=== PATIENT | male | born 1955 | race Caucasian/White ===

== ENCOUNTER 2018-09-06 10:33 | Inpatient (IN) | payer MEDICARE ==
[~2018-09-06] VITALS: Ht 182.9 cm; Wt 96.3 kg
[2018-09-06] MEDS ORDERED: CEFTRIAXONE 1 G in IV DEXTROSE 5% 50 ML IV ONE (12:00)
[2018-09-06] MEDS ORDERED: IV NORMAL SALINE 1000 ML BAG IV ONE (12:00)
[2018-09-06] MEDS ORDERED: VANCOMYCIN IV 1,000 MG in IV DEXTROSE 5% 250 ML IV ONE (12:00)
[2018-09-06] MEDS ORDERED: ONDANSETRON 4 MG/2 ML VIAL IV ONE (12:00)
[2018-09-06] MEDS ORDERED: MORPHINE SULFATE 2 MG/1 ML DISP.SYRIN IV ONE (12:00)
[2018-09-06] MEDS ORDERED: NEOMY/BACITRA/POLYMYXIN B OINT UD PACKET TP ONE ×2 (12:00→12:16)
[2018-09-06 12:08] LABS: BASOPHILS # (AUTO) 0.1 K/uL (0.0-8.0); BASOPHILS % (AUTO) 0.3 % (0.0-2.0); HEMATOCRIT 47.6 % (36.7-47.1); HEMOGLOBIN 16.5 g/dL (12.5-16.3); LYMPHOCYTES # (AUTO) 0.7 K/uL (20.0-40.0); MEAN CORPUSCULAR HEMOGLOBIN 30.9 uug (23.8-33.4); MEAN CORPUSCULAR HGB CONC 35 g/dL (32.5-36.3); MEAN CORPUSCULAR VOLUME 89.1 fL (73.0-96.2); MONOCYTES # (AUTO) 1.1 K/uL (2.0-10.0); MONOCYTES % (AUTO) 5.7 % (0.0-11.0); NEUTROPHILS # (AUTO) 16.8 K/uL (1.8-8.9); PLATELET COUNT (AUTO) 155 K/uL (152-348); RED BLOOD CELL COUNT(AUTO) 5.35 MIL/uL (4.06-5.63); WHITE BLOOD COUNT (AUTO) 18.6 K/uL (3.6-10.2)
[2018-09-06] MEDS ORDERED: MORPHINE SULFATE 4 MG/1 ML DISP.SYRIN ONE (12:15)
[2018-09-06] MEDS ORDERED: ONDANSETRON 4 MG/2 ML VIAL ONE (12:16)
[2018-09-06] MEDS ORDERED: CEFTRIAXONE 1 G VIAL ONE (12:16)
[2018-09-06 12:17] LABS: CREATININE 3.7 mg/dL (0.6-1.3); POTASSIUM 4.9 mmol/L (3.5-5.1)
[2018-09-06] MEDS ORDERED: VANCOMYCIN IV 200 ML ONE (12:17)
[2018-09-06 12:28] LABS: BILIRUBIN,DIRECT 0.3 mg/dL (0.0-0.2); BILIRUBIN,TOTAL 1.1 mg/dL (0.2-1.0)
[2018-09-06 13:22] LABS: ETHANOL < 3 MG/DL (0-0)
[2018-09-06 14:48] VITALS: BP 115/67
[2018-09-06] MEDS ORDERED: Z GUARD REMEDY PASTE 57 GM TUBE TOP PRN (15:30)
[2018-09-06] MEDS ORDERED: MAGNESIUM HYDROXIDE 30 ML LIQUID UDC PO PRN (15:30)
[2018-09-06] MEDS ORDERED: ONDANSETRON 4 MG/2 ML VIAL IV PRN (15:30)
[2018-09-06] MEDS: IV NS 1000 ML 1,000 ML IV PRN (16:54)
[2018-09-06 20:00] VITALS: BP 121/77
[2018-09-06] MEDS: HYDROCODONE/APAP 5-325MG TABLET PO PRN (21:08)
[2018-09-07] MEDS: IV NS 1000 ML 1,000 ML IV PRN ×2 (05:33→17:55)
[2018-09-07 06:05] VITALS: BP 116/69
[2018-09-07 07:01] LABS: BASOPHILS % (AUTO) 0.3 % (0.0-2.0); EOSINOPHILS % (AUTO) 0.1 % (0.0-7.0); HEMATOCRIT 40.6 % (36.7-47.1); LYMPHOCYTES # (AUTO) 0.7 K/uL (20.0-40.0); MEAN CORPUSCULAR HEMOGLOBIN 30.9 uug (23.8-33.4); MEAN CORPUSCULAR HGB CONC 35 g/dL (32.5-36.3); MEAN CORPUSCULAR VOLUME 89.5 fL (73.0-96.2); MONOCYTES # (AUTO) 0.7 K/uL (2.0-10.0); MONOCYTES % (AUTO) 6.3 % (0.0-11.0); NEUTROPHILS % (AUTO) 87.3 % (38.5-71.5); PLATELET COUNT (AUTO) 135 K/uL (152-348); RED BLOOD CELL COUNT(AUTO) 4.53 MIL/uL (4.06-5.63); WHITE BLOOD COUNT (AUTO) 11.5 K/uL (3.6-10.2)
[2018-09-07 07:07] LABS: BILIRUBIN,TOTAL 0.5 mg/dL (0.2-1.0); CREATININE 5.4 mg/dL (0.6-1.3); MAGNESIUM 2.3 mg/dL (1.8-2.4); PHOSPHOROUS 5.6 mg/dL (2.5-4.9); POTASSIUM 4.4 mmol/L (3.5-5.1); TOTAL PROTEIN, SERUM 6.5 g/dL (6.4-8.2)
[2018-09-07 07:11] LABS: THYROID STIMULATING HORMONE 2.3 mIU/mL (0.358-3.740); VANCOMYCIN,RANDOM 8.8 ug/mL (18.0-26.0)
[2018-09-07 08:07] LABS: HEPATITIS B SURFACE AG Negative (Negative)
[2018-09-07] MEDS ORDERED: VANCOMYCIN IV 1,500 MG in IV DEXTROSE 5% 500 ML IV ONE (10:00)
[2018-09-07] MEDS: HYDROCODONE/APAP 5-325MG TABLET PO PRN ×2 (11:17→16:58)
[2018-09-07 12:00] VITALS: BP 131/78
[2018-09-07] MEDS: CEFTRIAXONE 1 G in IV DEXTROSE 5% 50 ML IV SCH (13:10)
[2018-09-07 16:00] VITALS: BP 112/69
[2018-09-07 18:01] LABS: *AMPHETAMINE, URINE NEGATIVE (NEGATIVE); *BARBITURATE, URINE NEGATIVE (NEGATIVE); *CANNABINOID, URINE NEGATIVE (NEGATIVE); *COCCAINE, URINE NEGATIVE (NEGATIVE); *CREATININE,URINE 181.5 mg/dL (30-125); *OPIATE, URINE POSITIVE (NEGATIVE); *PHENCYCLIDINE SCREEN,URINE NEGATIVE (NEGATIVE); *URINE TOTAL PROTEIN RANDOM 377.7 mg/dL (<150/24HR)
[2018-09-07 18:42] LABS: *BILIRUBIN,URIN NEGATIVE (NEGATIVE); *BLOOD, URINE 3+ (NEGATIVE); *CLARITY,URINE CLOUDY (CLEAR); *COLOR,URINE Brown (YELLOW); *KETONES,URINE NEGATIVE (NEGATIVE); *UROBILINOGEN,URINE 0.2 E.U./dl (NORMAL); LEUKOCYTE ESTERASE ,URINE NEGATIVE (NEGATIVE); NITRITE, URINE NEGATIVE (NEGATIVE); PH,URINE 5.5 (5.0-8.0); UGLUCOSE NEGATIVE (NEGATIVE)
[2018-09-07 19:49] LABS: BACTERIA,URINE FEW /HPF (NONE SEEN); RBC,URINE 20-50 /HPF (0-3); SQUAMOUS EPITHELIAL CELL,UR NONE SEEN /HPF (NONE SEEN)
[2018-09-07 19:50] LABS: COARSE GRANULAR CASTS,URINE MODERATE /LPF
[2018-09-07 19:57] VITALS: BP 113/65
[2018-09-07] MEDS: CULTURELLE CAPSULE PO SCH (20:22)
[2018-09-08] MEDS: ZOLPIDEM 5 MG TABLET PO PRN ×2 (02:36→20:20)
[2018-09-08] MEDS: IV NS 1000 ML 1,000 ML IV PRN ×3 (02:39→20:23)
[2018-09-08 04:50] VITALS: BP 123/73
[2018-09-08] MEDS: ACETAMINOPHEN 325 MG TABLET PO PRN (06:03)
[2018-09-08 07:18] LABS: BASOPHILS % (AUTO) 0.4 % (0.0-2.0); EOSINOPHILS # (AUTO) 0.1 K/uL (0.0-0.7); EOSINOPHILS % (AUTO) 1.3 % (0.0-7.0); HEMOGLOBIN 12.6 g/dL (12.5-16.3); LYMPHOCYTES # (AUTO) 0.8 K/uL (20.0-40.0); LYMPHOCYTES % (AUTO) 11.7 % (20.5-51.5); MEAN CORPUSCULAR HEMOGLOBIN 30.6 uug (23.8-33.4); MEAN CORPUSCULAR HGB CONC 35 g/dL (32.5-36.3); MEAN CORPUSCULAR VOLUME 87.5 fL (73.0-96.2); MONOCYTES # (AUTO) 0.6 K/uL (2.0-10.0); MONOCYTES % (AUTO) 9.3 % (0.0-11.0); NEUTROPHILS # (AUTO) 5.3 K/uL (1.8-8.9); NEUTROPHILS % (AUTO) 77.3 % (38.5-71.5); PLATELET COUNT (AUTO) 126 K/uL (152-348); RED BLOOD CELL COUNT(AUTO) 4.11 MIL/uL (4.06-5.63); WHITE BLOOD COUNT (AUTO) 6.8 K/uL (3.6-10.2)
[2018-09-08 07:43] LABS: ALANINE AMINOTRANSFERASE 219 U/L (16-63); ALKALINE PHOSPHATASE 39 U/L (50-136); ASPARTATE AMINOTRANSFERASE 524 U/L (15-37); BILIRUBIN,DIRECT 0.1 mg/dL (0.0-0.2); BILIRUBIN,TOTAL 0.4 mg/dL (0.2-1.0); CARBON DIOXIDE 21 mmol/L (21-32); CHLORIDE 105 mmol/L (98-107); CREATININE 7.1 mg/dL (0.6-1.3); GLUCOSE 97 mg/dL (74-106); MAGNESIUM 2.2 mg/dL (1.8-2.4); PHOSPHOROUS 5.3 mg/dL (2.5-4.9); POTASSIUM 3.7 mmol/L (3.5-5.1); TOTAL PROTEIN, SERUM 5.6 g/dL (6.4-8.2)
[2018-09-08 08:02] LABS: UREA NITROGEN, BLOOD 85 mg/dL (7-18)
[2018-09-08 08:06] LABS: HEPATITIS B SURFACE AB Non Reactive (.)
[2018-09-08] MEDS: GUAIFENESIN/DEXTROMETHORPHAN 5 ML UDC PO PRN ×3 (08:13→18:37)
[2018-09-08] MEDS: CULTURELLE CAPSULE PO SCH ×2 (08:13→20:18)
[2018-09-08 08:29] LABS: CREATINE KINASE, TOTAL > 14000 U/L (39-308)
[2018-09-08 10:07] LABS: *SJOGREN'S ANTI-SS-A <0.2 AI (0.0-0.9); *SJOGREN'S ANTI-SS-B <0.2 AI (0.0-0.9); *SMITH ANTIBODIES <0.2 AI (0.0-0.9); ANTI-DNA(DS) AB, QN <1 IU/mL (0-9)
[2018-09-08] MEDS: CEFTRIAXONE 1 G in IV DEXTROSE 5% 50 ML IV SCH (11:29)
[2018-09-08] MEDS: HYDROCODONE/APAP 5-325MG TABLET PO PRN ×2 (11:45→20:19)
[2018-09-08 12:00] VITALS: BP 110/60
[2018-09-08 16:02] VITALS: BP 122/71
[2018-09-08 19:00] VITALS: BP 126/76
[2018-09-09 04:00] VITALS: BP 138/76
[2018-09-09] MEDS: IV NS 1000 ML 1,000 ML IV PRN ×2 (04:58→16:00)
[2018-09-09 05:06] LABS: COMPLEMENT, C3 SERUM 133 mg/dL (82-167); COMPLEMENT, C4 SERUM 36 mg/dL (14-44)
[2018-09-09 06:31] LABS: BASOPHILS % (AUTO) 0.5 % (0.0-2.0); EOSINOPHILS # (AUTO) 0.1 K/uL (0.0-0.7); EOSINOPHILS % (AUTO) 1.5 % (0.0-7.0); HEMATOCRIT 35.3 % (36.7-47.1); HEMOGLOBIN 12.4 g/dL (12.5-16.3); LYMPHOCYTES # (AUTO) 0.8 K/uL (20.0-40.0); MEAN CORPUSCULAR HEMOGLOBIN 30.9 uug (23.8-33.4); MEAN CORPUSCULAR HGB CONC 35 g/dL (32.5-36.3); MEAN CORPUSCULAR VOLUME 87.5 fL (73.0-96.2); MONOCYTES # (AUTO) 0.5 K/uL (2.0-10.0); MONOCYTES % (AUTO) 7.7 % (0.0-11.0); NEUTROPHILS # (AUTO) 5.4 K/uL (1.8-8.9); NEUTROPHILS % (AUTO) 79.3 % (38.5-71.5); PLATELET COUNT (AUTO) 142 K/uL (152-348); RED BLOOD CELL COUNT(AUTO) 4.03 MIL/uL (4.06-5.63); WHITE BLOOD COUNT (AUTO) 6.9 K/uL (3.6-10.2)
[2018-09-09 06:54] LABS: ALANINE AMINOTRANSFERASE 230 U/L (16-63); ALKALINE PHOSPHATASE 43 U/L (50-136); ASPARTATE AMINOTRANSFERASE 461 U/L (15-37); BILIRUBIN,TOTAL 0.4 mg/dL (0.2-1.0); CARBON DIOXIDE 20 mmol/L (21-32); CHLORIDE 108 mmol/L (98-107); CREATININE 7.4 mg/dL (0.6-1.3); GLUCOSE 121 mg/dL (74-106); MAGNESIUM 2.3 mg/dL (1.8-2.4); PHOSPHOROUS 5.2 mg/dL (2.5-4.9); TOTAL PROTEIN, SERUM 5.9 g/dL (6.4-8.2); VANCOMYCIN,RANDOM 18.7 ug/mL (18.0-26.0)
[2018-09-09 06:56] LABS: UREA NITROGEN, BLOOD 83 mg/dL (7-18)
[2018-09-09 07:27] LABS: CREATINE KINASE, TOTAL > 14000 U/L (39-308)
[2018-09-09] MEDS: CULTURELLE CAPSULE PO SCH ×2 (08:43→20:46)
[2018-09-09] MEDS: HYDROCODONE/APAP 5-325MG TABLET PO PRN ×3 (08:44→20:47)
[2018-09-09] MEDS: GUAIFENESIN/DEXTROMETHORPHAN 5 ML UDC PO PRN ×2 (08:44→18:31)
[2018-09-09 09:07] LABS: HEPATITIS Be ANTIGEN Negative (Negative)
[2018-09-09] MEDS ORDERED: VANCOMYCIN IV 1,500 MG in IV DEXTROSE 5% 500 ML IV ONE (10:00)
[2018-09-09 11:04] VITALS: BP 147/88
[2018-09-09] MEDS: CEFTRIAXONE 1 G in IV DEXTROSE 5% 50 ML IV SCH (12:23)
[2018-09-09 19:00] VITALS: BP 156/94
[2018-09-09] MEDS: ZOLPIDEM 5 MG TABLET PO PRN (20:46)
[2018-09-10] MEDS: IV NS 1000 ML 1,000 ML IV PRN ×3 (00:09→17:21)
[2018-09-10 04:00] VITALS: BP 154/91
[2018-09-10 07:41] LABS: BASOPHILS % (AUTO) 0.5 % (0.0-2.0); EOSINOPHILS # (AUTO) 0.1 K/uL (0.0-0.7); HEMOGLOBIN 12.3 g/dL (12.5-16.3); LYMPHOCYTES # (AUTO) 0.9 K/uL (20.0-40.0); LYMPHOCYTES % (AUTO) 12.5 % (20.5-51.5); MEAN CORPUSCULAR HEMOGLOBIN 30.9 uug (23.8-33.4); MEAN CORPUSCULAR HGB CONC 35 g/dL (32.5-36.3); MEAN CORPUSCULAR VOLUME 87.9 fL (73.0-96.2); MONOCYTES # (AUTO) 0.6 K/uL (2.0-10.0); MONOCYTES % (AUTO) 8.1 % (0.0-11.0); NEUTROPHILS # (AUTO) 5.5 K/uL (1.8-8.9); NEUTROPHILS % (AUTO) 76.9 % (38.5-71.5); PLATELET COUNT (AUTO) 180 K/uL (152-348); RED BLOOD CELL COUNT(AUTO) 3.98 MIL/uL (4.06-5.63); WHITE BLOOD COUNT (AUTO) 7.2 K/uL (3.6-10.2)
[2018-09-10 08:04] LABS: CARBON DIOXIDE 23 mmol/L (21-32); CHLORIDE 109 mmol/L (98-107); CREATININE 6.6 mg/dL (0.6-1.3); GLUCOSE 94 mg/dL (74-106); POTASSIUM 4.1 mmol/L (3.5-5.1); UREA NITROGEN, BLOOD 74 mg/dL (7-18)
[2018-09-10] MEDS: CULTURELLE CAPSULE PO SCH ×2 (08:12→20:14)
[2018-09-10 08:22] LABS: CREATINE KINASE, TOTAL > 14000 U/L (39-308)
[2018-09-10] MEDS: GUAIFENESIN/DEXTROMETHORPHAN 5 ML UDC PO PRN (08:39)
[2018-09-10] MEDS: HYDROCODONE/APAP 5-325MG TABLET PO PRN ×3 (08:39→20:14)
[2018-09-10 11:02] VITALS: BP 166/87
[2018-09-10] MEDS: CEFTRIAXONE 1 G in IV DEXTROSE 5% 50 ML IV SCH (11:05)
[2018-09-10 15:03] VITALS: BP 147/93
[2018-09-10 20:00] VITALS: BP 164/96
[2018-09-10] MEDS: ZOLPIDEM 5 MG TABLET PO PRN (20:14)
[2018-09-10] MEDS ORDERED: CLONIDINE HCL 0.1 MG TABLET PO PRN (21:45)
[2018-09-10 23:03] VITALS: BP 131/77
[2018-09-11] MEDS: IV NS 1000 ML 1,000 ML IV PRN ×3 (01:48→18:28)
[2018-09-11 05:21] VITALS: BP 153/82
[2018-09-11] MEDS: HYDROCODONE/APAP 5-325MG TABLET PO PRN ×3 (05:57→21:12)
[2018-09-11 06:03] LABS: BASOPHILS % (AUTO) 0.7 % (0.0-2.0); EOSINOPHILS # (AUTO) 0.2 K/uL (0.0-0.7); EOSINOPHILS % (AUTO) 3.3 % (0.0-7.0); HEMATOCRIT 36.1 % (36.7-47.1); HEMOGLOBIN 12.5 g/dL (12.5-16.3); LYMPHOCYTES # (AUTO) 0.9 K/uL (20.0-40.0); MEAN CORPUSCULAR HEMOGLOBIN 30.3 uug (23.8-33.4); MEAN CORPUSCULAR HGB CONC 35 g/dL (32.5-36.3); MEAN CORPUSCULAR VOLUME 87.6 fL (73.0-96.2); MONOCYTES # (AUTO) 0.5 K/uL (2.0-10.0); MONOCYTES % (AUTO) 7.5 % (0.0-11.0); NEUTROPHILS # (AUTO) 5.3 K/uL (1.8-8.9); NEUTROPHILS % (AUTO) 75.5 % (38.5-71.5); PLATELET COUNT (AUTO) 209 K/uL (152-348); RED BLOOD CELL COUNT(AUTO) 4.13 MIL/uL (4.06-5.63)
[2018-09-11 06:29] LABS: CREATININE 5.5 mg/dL (0.6-1.3); POTASSIUM 3.7 mmol/L (3.5-5.1); VANCOMYCIN,RANDOM 21.9 ug/mL (18.0-26.0)
[2018-09-11] MEDS: CULTURELLE CAPSULE PO SCH ×2 (09:11→21:12)
[2018-09-11] MEDS: CEFTRIAXONE 1 G in IV DEXTROSE 5% 50 ML IV SCH (11:12)
[2018-09-11 11:30] VITALS: BP 170/87
[2018-09-11 15:03] VITALS: BP 167/78
[2018-09-11 19:56] VITALS: BP_SYST 150; BP_SYST 166; BP_DIAS 90
[2018-09-11] MEDS: ZOLPIDEM 5 MG TABLET PO PRN (21:13)
[2018-09-12] MEDS: IV NS 1000 ML 1,000 ML IV PRN ×2 (02:40→13:43)
[2018-09-12] MEDS: HYDROCODONE/APAP 5-325MG TABLET PO PRN ×3 (05:01→13:19)
[2018-09-12 05:26] VITALS: BP 131/66
[2018-09-12 06:01] LABS: BASOPHILS # (AUTO) 0.1 K/uL (0.0-8.0); BASOPHILS % (AUTO) 0.8 % (0.0-2.0); EOSINOPHILS # (AUTO) 0.3 K/uL (0.0-0.7); EOSINOPHILS % (AUTO) 3.6 % (0.0-7.0); HEMATOCRIT 35.1 % (36.7-47.1); HEMOGLOBIN 12.3 g/dL (12.5-16.3); LYMPHOCYTES # (AUTO) 1.1 K/uL (20.0-40.0); LYMPHOCYTES % (AUTO) 13.8 % (20.5-51.5); MEAN CORPUSCULAR HEMOGLOBIN 30.8 uug (23.8-33.4); MEAN CORPUSCULAR HGB CONC 35 g/dL (32.5-36.3); MEAN CORPUSCULAR VOLUME 88.3 fL (73.0-96.2); MONOCYTES # (AUTO) 0.7 K/uL (2.0-10.0); MONOCYTES % (AUTO) 9.7 % (0.0-11.0); NEUTROPHILS # (AUTO) 5.6 K/uL (1.8-8.9); NEUTROPHILS % (AUTO) 72.1 % (38.5-71.5); PLATELET COUNT (AUTO) 240 K/uL (152-348); RED BLOOD CELL COUNT(AUTO) 3.98 MIL/uL (4.06-5.63); WHITE BLOOD COUNT (AUTO) 7.7 K/uL (3.6-10.2)
[2018-09-12 06:31] LABS: CREATININE 4.3 mg/dL (0.6-1.3); POTASSIUM 3.6 mmol/L (3.5-5.1); VANCOMYCIN,RANDOM 15.5 ug/mL (18.0-26.0)
[2018-09-12] MEDS: CULTURELLE CAPSULE PO SCH (08:35)
[2018-09-12] MEDS ORDERED: VANCOMYCIN IV 1,500 MG in IV DEXTROSE 5% 500 ML IV ONE (09:00)
[2018-09-12] MEDS ORDERED: CEPH500C2 PO (09:37)
[2018-09-12] MEDS ORDERED: SULF1TAB48 PO (09:37)
[2018-09-12 11:08] VITALS: BP 144/74
[2018-09-12 11:25] VITALS: BP 142/73
[2018-09-12] MEDS: ACETAMINOPHEN 325 MG TABLET PO PRN (11:28)
[2018-09-12] MEDS: CEFTRIAXONE 1 G in IV DEXTROSE 5% 50 ML IV SCH (12:24)
[2018-09-12 15:42] VITALS: BP 135/74
== END 2018-09-12 18:00 | disposition home or self-care (01) | DRG 682 ==
LOC: ER 10:33 → MED 14:24 → EDBD 14:24
PROVIDERS: ADMIT Internal Medicine; ATTEND Nurse Practitioner Acute Care
DX: N17.0 Acute kidney failure with tubular necrosis (principal); E43 Unspecified severe protein-calorie malnutrition; M62.82 Rhabdomyolysis; L03.116 Cellulitis of left lower limb; E86.0 Dehydration; Z68.28 Body mass index [BMI] 28.0-28.9, adult; R74.0 Nonspecific elevation of levels of transaminase and lactic acid dehydrogenase [LDH]; E66.9 Obesity, unspecified; E83.39 Other disorders of phosphorus metabolism; N18.9 Chronic kidney disease, unspecified; E83.41 Hypermagnesemia; D69.6 Thrombocytopenia, unspecified; N40.0 Benign prostatic hyperplasia without lower urinary tract symptoms; Z87.891 Personal history of nicotine dependence; R73.9 Hyperglycemia, unspecified; E88.09 Other disorders of plasma-protein metabolism, not elsewhere classified; F10.11 Alcohol abuse, in remission; F19.11 Other psychoactive substance abuse, in remission; D72.829 Elevated white blood cell count, unspecified; Z71.3 Dietary counseling and surveillance; S80.02XA Contusion of left knee, initial encounter; X58.XXXA Exposure to other specified factors, initial encounter; Y93.9 Activity, unspecified; Y92.009 Unspecified place in unspecified non-institutional (private) residence as the place of occurrence of the external cause; R23.4 Changes in skin texture
CPT/HCPCS: 36415; 71045; 73660; 76770; 80307; 83520; 83735; 84100; 84156; 84300; 84443; 85025; 85730; 86038; 86160; 86256; 86704; 86705; 86706; 86803; 87086; 87340; 87350; 87806; 93005; 97116; 97530; A4663; G0378; G0480; J0696; J2270; J2405; J3370; J3490; J7030; J7060